=== PATIENT | male | born 1955 | race Caucasian/White ===

== ENCOUNTER 2019-02-10 16:16 | Inpatient (IN) | payer BC, OTHER ==
[2019-02-10 17:00] LABS: Absolute Lymphocytes (CBC) 0.7 K/uL (0.7-4.9); Basophils % 0.3 % (0-1.3); Eosinophils % 0.2 % (0-4.4); Hematocrit 48.1 % (39.6-49.0); Lymphocytes % 5.3 % (15.3-44.8); MPV 9.3 fL (7.6-11.3); RBC Red Blood Cell Count 5.84 M/uL (4.33-5.43)
[2019-02-10] MEDS ORDERED: NA CHLORIDE 0.9% 1,000 ML ONE ×2 (17:01→18:35)
[2019-02-10] MEDS ORDERED: ACETAMINOPHEN 500 MG TAB ONE (17:09)
[2019-02-10 17:15] LABS: Urine Bacteria <20 /HPF (NONE SEEN); Urine Culture Reflex Order NOT NEEDED; Urine RBC <5 /HPF (NONE SEEN)
[2019-02-10 17:16] LABS: Urine Amorphous Sediment 1+ /HPF (NONE SEEN)
[2019-02-10 17:22] LABS: ALT/SGPT 23 U/L (12-78); AST/SGOT 29 U/L (15-37); Albumin 4.2 g/dL (3.4-5.0); Alkaline Phosphatase 91 U/L (45-117); BUN Blood Urea Nitrogen 14 mg/dL (7-18); Bicarbonate 26 mmol/L (21-32); Bilirubin Direct 0.2 mg/dL (0-0.2); Bilirubin Total 0.7 mg/dL (0.2-1.0); Glucose Level 127 mg/dL (74-106); Lipase 160 U/L (73-393); Magnesium 2.1 mg/dL (1.8-2.4); NT PRO-BNP 51 pg/mL (<125); Potassium 3.8 mmol/L (3.5-5.1); Protein, Total 8.3 g/dL (6.4-8.2); Sodium Level 140 mmol/L (136-145); Troponin (Emerg Dept Use Only) < 0.02 ng/mL (0.0-0.045)
[2019-02-10 17:32] LABS: Protime INR 1.19
[2019-02-10 17:35] LABS: Blood Morphology Comment NOT SEEN (NOT SEEN); Platelet Estimate ADEQ; Urine White Blood Cell Casts OK
[2019-02-10] MEDS ORDERED: KETOROLAC 30 MG/ML INJ ONE (17:40)
[2019-02-10] MEDS ORDERED: ONDANSETRON 4 MG/2 ML VIAL ONE ×2 (18:17→18:55)
--- NOTE | 2019-02-10 18:48 | RAD REPORT ---
EXAM DESCRIPTION: RAD - Chest Single View - 02/10/2019 5:09 pm CLINICAL HISTORY: FEVER Chest pain. COMPARISON: CHEST PA AND LAT 2 VIEW dated 07/23/2008; CHEST PA AND LAT 2 VIEW dated 11/18/2000 FINDINGS: Portable technique limits examination quality. Linear subsegmental atelectasis is present both lung bases, greater on the left. Small left pleural e ffusion. Early infiltrate/pneumonia is possible in the left base. The heart is normal in size. No dis placed fractures.
--- NOTE | 2019-02-10 19:50 | RAD REPORT ---
EXAM DESCRIPTION: CTAbdomen Pelvis W Contrast - 02/10/2019 7:38 pm CLINICAL HISTORY: Abdominal pain. diarrhea;Fever COMPARISON: <Comparisons> TECHNIQUE: Biphasic CT imaging of the abdomen and pelvis was performed with 100 ml non-ionic IV cont rast. All CT scans are performed using dose optimization technique as appropriate and may include automated exposure control or mA/KV adjustment according to patient size. FINDINGS: The lung bases are clear.Small hiatal hernia. Fatty liver is present. No focal mass or intrahepatic biliary dilatation. Spleen is mildly enlarged. The pancreas, adrenal glands and kidneys within normal limits. Diffuse thickening of the colon is present several diverticula present. No bowel obstruction, free ai r or abscess. No significant ascites. The appendix is normal. Small fat containing bilateral inguinal hernias. No evidence of significant lymphadenopathy. No suspicious bony findings. IMPRESSION: Moderate pancolitis is noted. No pneumatosis coli.
[2019-02-10 19:59] LABS: Urine Blood TRACE (NEG); Urine Glucose NEGATIVE (NEG); Urine Protein 2+ (NEG); Urine Specific Gravity 1.025 (1.005-1.030); Urine pH 5.5 (5.0-7.0)
[2019-02-10] MEDS ORDERED: METRONIDAZOLE 500mg IVPB 500 MG/100 ML BAG IV ONE (20:23)
--- NOTE | 2019-02-10 20:50 | EDPHYS ---
Physician Documentation [facility] Name: Quentin Shoemaker Age: 63 yrs Sex: Male : 1955 Arrival Date: 02/10/2019 Time: 16:18 Bed 25 Private MD: ED Physician Yuriy Colon HPI: 02/10 16:41 This 63 yrs old Male presents to ER via Ambulatory with complaints of Nausea, cp Diarrhea, Fever. 16:41 The patient reports fever, with an emergency department temperature of 101.8 degrees cp Fahrenheit. Onset: The symptoms/episode began/occurred 2 day(s) ago. Associated signs and symptoms: Pertinent positives: diarrhea, Pertinent negatives: abdominal pain, altered mental status, chest pain, headache, skin rash. 16:41 Severity of symptoms: in the emergency department the symptoms are unchanged despite cp home interventions. Historical: - Allergies: 16:24 No Known Allergies; aa5 - Home Meds: 17:31 Vyvanse 50 mg oral cap 1 cap once daily [Active]; pantoprazole 40 mg oral TbEC 1 tab ca1 once daily [Active]; lisinopril-hydrochlorothiazide 10-12.5 mg oral tab .5 tab once daily [Active]; metformin 500 mg Oral Tb24 2 tabs 2 times per day [Active]; gabapentin 600 mg oral tab 1 tab twice a day [Active]; amitriptyline 10 mg Oral tab 2 tabs nightly [Active]; hydrocodone-acetaminophen 7.5-325 mg oral tab 1 tab twice a day [Active]; hydroxyurea 500 mg Oral cap 1 cap twice a week [Active]; tramadol 50 mg Oral tab 2 tabs three times a day [Active]; aspirin 81 mg Oral chew 1 tab once daily [Active]; Zyrtec Oral as needed [Active]; Multiple Vitamins oral tab [Active]; Vitamin D Oral [Active]; - PMHx: 16:24 Chronic back pain; Hypertension; Diabetes - NIDDM; aa5 22:26 Leukemia; ca1 - PSHx: 16:24 Tonsillectomy; aa5 - Immunization history:: Flu vaccine is up to date. - Social history:: Smoking status: Patient/guardian denies using tobacco. - Ebola Screening: : No symptoms or risks identified at this time. ROS: 16:45 Constitutional: Positive for fever, Negative for body aches, chills, poor PO intake. cp 16:45 Eyes: Negative for injury, pain, redness, and discharge. cp 16:45 Cardiovascular: Negative for chest pain, edema, palpitations. 16:45 Respiratory: Negative for cough, shortness of breath, wheezing. 16:45 Abdomen/GI: Positive for diarrhea, Negative for abdominal pain, vomiting, constipation, black/tarry stool, rectal bleeding. 16:45 Back: Negative for pain at rest, pain with movement. 16:45 Neuro: Negative for altered mental status, dizziness, headache, syncope, weakness. 16:45 All other systems are negative. Exam: 16:52 Constitutional: The patient appears in no acute distress, alert, awake, cp non-diaphoretic, non-toxic, well developed, well nourished. 16:52 Head/Face: Normocephalic, atraumatic. cp 16:52 Eyes: Periorbital structures: appear normal, Conjunctiva: normal, no exudate, no injection, Sclera: no appreciated abnormality, Lids and lashes: appear normal, bilaterally. 16:52 ENT: External ear(s): are unremarkable, Nose: is normal, Mouth: Lips: moist, Oral mucosa: pink and intact, moist, Posterior pharynx: is normal, airway is patent, no erythema, no exudate. 16:52 Neck: ROM/movement: is normal, is supple, without pain, no range of motions limitations, no nuchal rigidity. 16:52 Chest/axilla: Inspection: normal, Palpation: is normal, no crepitus, no tenderness. 16:52 Cardiovascular: Rate: tachycardic, Rhythm: regular, Edema: is not appreciated, JVD: is not appreciated. 16:52 Respiratory: the patient does not display signs of respiratory distress, Respirations: normal, no use of accessory muscles, no retractions, no splinting, no tachypnea, labored breathing, is not present, Breath sounds: are clear throughout, no decreased breath sounds, no stridor, no wheezing. 16:52 Abdomen/GI: Inspection: abdomen appears normal, Bowel sounds: active, all quadrants, Palpation: soft, in all quadrants, mild abdominal tenderness, in all quadrants, rebound tenderness, is not appreciated, voluntary guarding, is not appreciated, involuntary guarding, is not appreciated. 16:52 Back: pain, is absent, ROM is normal. 16:52 Skin: no rash present. cp 16:52 Neuro: Orientation: to person, place \T\ time. Mentation: is normal, Motor: moves all cp fours, strength is normal. 16:57 ECG was reviewed by the Attending Physician. cp 19:37 : Rectal exam: Guaiac testing: results were negative for occult blood. cp Vital Signs: 16:24 BP 158 / 96; Pulse 111; Resp 18 S; Temp 101.8(O); Pulse Ox 98% on R/A; Weight 95.25 kg aa5 (R); Height 6 ft. 0 in. (182.88 cm) (R); 17:07 BP 148 / 96; Pulse 111; Resp 15; Pulse Ox 96% on R/A; ca1 18:00 BP 119 / 79; Pulse 98; Resp 18; Pulse Ox 95% on R/A; rv 18:40 BP 137 / 95; Pulse 93; Resp 17 S; Temp 98.6(O); Pulse Ox 97% on R/A; ca1 18:46 Temp 98.7(O); ca1 20:18 BP 145 / 94; Pulse 95; Resp 17 S; Pulse Ox 96% on R/A; ca1 21:00 BP 139 / 92; Pulse 94; Resp 16 S; Temp 98.8(O); Pulse Ox 97% on R/A; ca1 21:37 BP 137 / 98; Pulse 83; Resp 17 S; Pulse Ox 97% on R/A; ca1 22:15 BP 134 / 95; Pulse 84; Resp 19 S; Temp 98.4(O); Pulse Ox 99% on R/A; ca1 16:24 Body Mass Index 28.48 (95.25 kg, 182.88 cm) aa5 MDM: 16:32 Patient medically screened. cp 17:00 Differential diagnosis: pneumonia meningitis, sepsis, gastroenteritis, colitis. cp 20:05 Data reviewed: vital signs, nurses notes, lab test result(s), EKG, radiologic studies, cp CT scan, plain films. 20:05 Test interpretation: by ED physician or midlevel provider: ECG, plain radiologic cp studies. Counseling: I had a detailed discussion with the patient and/or guardian regarding: the historical points, exam findings, and any diagnostic results supporting the discharge/admit diagnosis, lab results, radiology results, the need for further work-up and treatment in the hospital. 20:16 Physician consultation: Kevin Johnson MD was called at 20:17, unable to leave message cp on voicemail. 20:45 Physician consultation: Kevin Johnson MD was contacted at 20:45, regarding admission, cp to the medical/surgical unit. patient's condition. 02/10 16:37 Order name: Influenza Screen (a \T\ B) cp 02/10 16:37 Order name: Basic Metabolic Panel 02/10 16:37 Order name: CBC with Diff 02/10 16:37 Order name: LFT's cp 02/10 16:37 Order name: Magnesium cp 02/10 16:37 Order name: NT PRO-BNP 02/10 16:37 Order name: PT-INR 02/10 16:37 Order name: Troponin (emerg Dept Use Only) 02/10 16:37 Order name: Blood Culture Adult (2) 02/10 16:37 Order name: Lactate cp 02/10 16:37 Order name: Procalcitonin; Complete Time: 17:39 cp 02/10 17:44 Interpretation: Reviewed. 02/10 16:37 Order name: Urine Microscopic Only; Complete Time: 17:23 cp 02/10 18:25 Interpretation: Reviewed. 02/10 16:37 Order name: Lipase; Complete Time: 17:39 cp 02/10 16:38 Order name: Influenza Screen (A ; Complete Time: 17:39 EDMS 02/10 16:37 Order name: XRAY Chest (1 view); Complete Time: 19:27 cp 02/10 16:38 Order name: Basic Metabolic Panel; Complete Time: 17:23 EDMS 02/10 17:23 Interpretation: Normal except: GLUC 127; GFR 59. cp 02/10 16:38 Order name: CBC with Automated Diff; Complete Time: 17:39 EDMS 02/10 17:23 Interpretation: Normal except: WBC 13.5; RBC 5.84; MCH 25.0; MCHC 30.4; RDW 17.7; AD% cp 87.2; LYM% 5.3; NEUT A 11.8. 02/10 16:38 Order name: Liver (Hepatic) Function; Complete Time: 17:24 EDMS 02/10 17:24 Interpretation: Normal except: TP 8.3; GLOB 4.1; A/G 1.0. cp 02/10 16:38 Order name: Magnesium; Complete Time: 17:39 EDMS 02/10 16:38 Order name: NT PRO-BNP; Complete Time: 17:39 EDMS 02/10 16:38 Order name: Protime (+INR); Complete Time: 17:39 EDMS 02/10 17:41 Interpretation: Abnormal: PT 14.0. cp 02/10 16:38 Order name: Troponin (Emerg Dept Use Only); Complete Time: 17:39 EDMS 02/10 16:38 Order name: Blood Culture EDID 02/10 16:39 Order name: Lactate; Complete Time: 17:39 EDMS 02/10 17:45 Interpretation: LAC 1.6; Reviewed. cp 02/10 17:07 Order name: CBC Smear Scan; Complete Time: 17:39 EDMS 02/10 17:18 Order name: CT Abd/Pelvis - PO and IV Contrast; Complete Time: 20:02 cp 02/10 19:33 Order name: Stool Culture 02/10 19:33 Order name: CDIFF 02/10 19:51 Order name: Urine Dipstick--Ancillary (enter results); Complete Time: 20:02 02/10 20:02 Interpretation: Normal except: UKET 1+; UBLD TRACE; UPROT 2+. cp 02/10 21:49 Order name: Fecal Leukocyte Stain EDID 02/10 16:37 Order name: EKG; Complete Time: 16:39 cp 02/10 16:37 Order name: Cardiac monitoring; Complete Time: 16:49 cp 02/10 16:37 Order name: EKG - Nurse/Tech; Complete Time: 16:53 cp 02/10 16:37 Order name: IV Saline Lock; Complete Time: 16:49 cp 02/10 16:37 Order name: Labs collected and sent; Complete Time: 16:48 cp 02/10 16:37 Order name: O2 Per Protocol; Complete Time: 16:48 cp 02/10 16:37 Order name: O2 Sat Monitoring; Complete Time: 16:49 cp 02/10 16:37 Order name: Urine Dipstick-Ancillary (obtain specimen); Complete Time: 16:53 cp 02/10 21:47 Order name: ACACIA EDMS EC:57 Rate is 114 beats/min. Rhythm is regular. AR interval is normal. QRS interval is cp normal. QT interval is normal. Interpreted by me. Reviewed by me. Administered Medications: 16:48 Drug: NS 0.9% 1000 ml Route: IV; Rate: 1 bolus; Site: left antecubital; ca1 17:50 Follow up: Response: No adverse reaction; IV Status: Completed infusion ca1 16:51 Drug: Tylenol 1000 mg Route: PO; ca1 18:46 Follow up: Temp 98.7 Oral; Response: No adverse reaction ca1 17:31 Drug: TORadol 30 mg Route: IVP; Site: left antecubital; rv 18:46 Follow up: Response: No adverse reaction; Pain is decreased ca1 17:49 Drug: Zofran 4 mg Route: IVP; Site: left antecubital; ca1 18:46 Follow up: Response: No adverse reaction; Nausea is decreased ca1 18:24 Drug: NS 0.9% 1000 ml Route: IV; Rate: 1 bolus; Site: left antecubital; rv 19:20 Follow up: Response: No adverse reaction; IV Status: Completed infusion ca1 20:15 Drug: metroNIDAZOLE 500 mg Volume: 100 ml; Route: IVPB; Infused Over: 30 mins; Site: ca1 left antecubital; 21:19 Follow up: Response: No adverse reaction; IV Status: Completed infusion ca1 21:18 Drug: Cipro 400 mg Volume: 200 ml; Route: IVPB; Infused Over: 60 mins; Site: left ca1 antecubital; 22:17 Follow up: Response: No adverse reaction; IV Status: Completed infusion ca1 22:29 Drug: fentaNYL (PF) 25 mcg Route: IVP; Site: left antecubital; ca1 22:36 Follow up: Response: No adverse reaction; Pain is decreased ca1 Disposition: 02/10/19 20:49 Hospitalization ordered by Kevin Johnson for Inpatient Admission. Preliminary diagnosis is Infectious gastroenteritis and colitis, unspecified. - Bed requested for Telemetry/MedSurg (Inpatient). - Status is Inpatient Admission. ca1 - Condition is Stable. - Problem is new. - Symptoms have improved. UTI on Admission? No Addendum: 02/16/2019 00:52 Co-signature as Attending Physician, Yuriy Colon MD. r n Signatures: Dispatcher [employer] EDMS Yuiry Colon MD MD rn Calderon, Audri RN RN aa5 Filiberto Morrison PA PA cp Lyn Sinclair, YULIYA RN cg Lázaro Rowan, RN RN AcMary diaz RN RN ca1 Corrections: (The following items were deleted from the chart) 02/10 22:07 20:49 Hospitalization Ordered by Kevin Johnson MD for Inpatient Admission. Preliminary cg diagnosis is Infectious gastroenteritis and colitis, unspecified. Bed requested for Telemetry/MedSurg (Inpatient). Status is Inpatient Admission. Condition is Stable. Problem is new. Symptoms have improved. UTI on Admission? No. cp 22:37 22:07 02/10/2019 20:49 Hospitalization Ordered by Kevin Johnson MD for Inpatient ca1 Admission. Preliminary diagnosis is Infectious gastroenteritis and colitis, unspecified. Bed requested for Telemetry/MedSurg (Inpatient). Status is Inpatient Admission. Condition is Stable. Problem is new. Symptoms have improved. UTI on Admission? No. cg
--- NOTE | 2019-02-10 20:50 | ER ---
Nurse's Notes [facility] [place], [place] Name: Quentin Shoemaker Age: 63 yrs Sex: Male : 1955 Arrival Date: 02/10/2019 Time: 16:18 Bed 25 Private MD: Diagnosis: Infectious gastroenteritis and colitis, unspecified Presentation: 02/10 16:21 Presenting complaint: Patient states: nausea, diarrhea, and fever up to 102.6 F that aa5 began 2 days ago. Pt's also reports confusion today. Pt denies abd pain. Transition of care: patient was not received from another setting of care. Onset of symptoms was February 2019. Risk Assessment: Do you want to hurt yourself or someone else? Patient reports no desire to harm self or others. Care prior to arrival: None. 16:21 Method Of Arrival: Ambulatory aa5 16:21 Acuity: HALINA 2 aa5 16:25 Initial Sepsis Screen: Does the patient meet any 2 criteria? Temp <36.0*C (96.8*F)) or aa5 > 38.3*C (100.9*F). HR > 90 bpm. Yes Does the patient have a suspected source of infection? Yes: Other: diarrhea. Historical: - Allergies: 16:24 No Known Allergies; aa5 - Home Meds: 17:31 Vyvanse 50 mg oral cap 1 cap once daily [Active]; pantoprazole 40 mg oral TbEC 1 tab ca1 once daily [Active]; lisinopril-hydrochlorothiazide 10-12.5 mg oral tab .5 tab once daily [Active]; metformin 500 mg Oral Tb24 2 tabs 2 times per day [Active]; gabapentin 600 mg oral tab 1 tab twice a day [Active]; amitriptyline 10 mg Oral tab 2 tabs nightly [Active]; hydrocodone-acetaminophen 7.5-325 mg oral tab 1 tab twice a day [Active]; hydroxyurea 500 mg Oral cap 1 cap twice a week [Active]; tramadol 50 mg Oral tab 2 tabs three times a day [Active]; aspirin 81 mg Oral chew 1 tab once daily [Active]; Zyrtec Oral as needed [Active]; Multiple Vitamins oral tab [Active]; Vitamin D Oral [Active]; - PMHx: 16:24 Chronic back pain; Hypertension; Diabetes - NIDDM; aa5 22:26 Leukemia; ca1 - PSHx: 16:24 Tonsillectomy; aa5 - Immunization history:: Flu vaccine is up to date. - Social history:: Smoking status: Patient/guardian denies using tobacco. - Ebola Screening: : No symptoms or risks identified at this time. Screenin:49 Abuse screen: Denies threats or abuse. Denies injuries from another. Nutritional ca1 screening: No deficits noted. Tuberculosis screening: No symptoms or risk factors identified. Fall Risk IV access (20 points). Assessment: 16:49 General: Appears in no apparent distress. comfortable, Behavior is calm, cooperative, ca1 appropriate for age. General: Behavior is Reports fever for 1-2 days. Pain: Complains of pain in abdomen Pain does not radiate. Pain currently is 6 out of 10 on a pain scale. Quality of pain is described as crampy, Pain began 1 day ago. Is intermittent. Neuro: Level of Consciousness is awake, alert, obeys commands, Oriented to person, place, time, situation. Cardiovascular: Reports lightheadedness, Heart tones S1 S2 present Capillary refill < 3 seconds Patient's skin is warm and dry. Pulses are all present. Respiratory: Airway is patent Respiratory effort is even, unlabored, Respiratory pattern is regular, symmetrical, Breath sounds are clear bilaterally. GI: Abdomen is flat, non-distended, Bowel sounds present X 4 quads. Abd is soft and non tender X 4 quads. Reports diarrhea, nausea, since yesterday. : No deficits noted. No signs and/or symptoms were reported regarding the genitourinary system. EENT: No deficits noted. No signs and/or symptoms were reported regarding the EENT system. Derm: Skin is intact, is healthy with good turgor, Skin is pink, warm \T\ dry. Musculoskeletal: Circulation, motion, and sensation intact. Capillary refill < 3 seconds, Range of motion: intact in all extremities. 17:32 Reassessment: Patient appears in no apparent distress at this time. Patient and/or ca1 family updated on plan of care and expected duration. Pain level reassessed. Patient is alert, oriented x 3, equal unlabored respirations, skin warm/dry/pink. Pt C/O of neuropathic pain on both legs. Notified provider. Med ordered and given. 18:30 Reassessment: pt had BMx4, loose. Notified provider. ca1 18:40 Reassessment: Patient appears in no apparent distress at this time. Patient and/or ca1 family updated on plan of care and expected duration. Pain level reassessed. Patient is alert, oriented x 3, equal unlabored respirations, skin warm/dry/pink. Pending CT scan with Oral Contrast. 19:15 Reassessment: Patient appears in no apparent distress at this time. Patient and/or ca1 family updated on plan of care and expected duration. Pain level reassessed. Patient is alert, oriented x 3, equal unlabored respirations, skin warm/dry/pink. 20:16 Reassessment: Patient appears in no apparent distress at this time. Patient and/or ca1 family updated on plan of care and expected duration. Pain level reassessed. Patient is alert, oriented x 3, equal unlabored respirations, skin warm/dry/pink. 21:00 Reassessment: Patient appears in no apparent distress at this time. Patient and/or ca1 family updated on plan of care and expected duration. Pain level reassessed. Patient is alert, oriented x 3, equal unlabored respirations, skin warm/dry/pink. 22:15 Reassessment: Patient appears in no apparent distress at this time. Patient is alert, ca1 oriented x 3, equal unlabored respirations, skin warm/dry/pink. Instructed on NPO. Vital Signs: 16:24 BP 158 / 96; Pulse 111; Resp 18 S; Temp 101.8(O); Pulse Ox 98% on R/A; Weight 95.25 kg aa5 (R); Height 6 ft. 0 in. (182.88 cm) (R); 17:07 BP 148 / 96; Pulse 111; Resp 15; Pulse Ox 96% on R/A; ca1 18:00 BP 119 / 79; Pulse 98; Resp 18; Pulse Ox 95% on R/A; rv 18:40 BP 137 / 95; Pulse 93; Resp 17 S; Temp 98.6(O); Pulse Ox 97% on R/A; ca1 18:46 Temp 98.7(O); ca1 20:18 BP 145 / 94; Pulse 95; Resp 17 S; Pulse Ox 96% on R/A; ca1 21:00 BP 139 / 92; Pulse 94; Resp 16 S; Temp 98.8(O); Pulse Ox 97% on R/A; ca1 21:37 BP 137 / 98; Pulse 83; Resp 17 S; Pulse Ox 97% on R/A; ca1 22:15 BP 134 / 95; Pulse 84; Resp 19 S; Temp 98.4(O); Pulse Ox 99% on R/A; ca1 16:24 Body Mass Index 28.48 (95.25 kg, 182.88 cm) aa5 ED Course: 16:18 Patient arrived in ED. as 16:21 Arm band placed on. aa5 16:23 Triage completed. aa5 16:24 Filiberto Morrison PA is PHCP. cp 16:24 Yuriy Colon MD is Attending Physician. cp 16:26 Mary Walton, YULIYA is Primary Nurse. ca1 16:49 Patient has correct armband on for positive identification. Placed in gown. Bed in low ca1 position. Call light in reach. Side rails up X 1. nuclear monitoring technician on. Pulse ox on. NIBP on. 16:49 No provider procedures requiring assistance completed. Inserted saline lock: 20 gauge ca1 in left antecubital area, using aseptic technique. Blood collected. 16:49 First set of blood cultures drawn by me. ca1 17:07 XRAY Chest (1 view) In Process Unspecified. EDMS 17:13 EKG done, by process engineering technician. reviewed by Filiberto CHANDLER. dt2 17:18 Second set of blood cultures drawn by me. rv 17:23 Oral contrast given. vm2 19:38 CT Abd/Pelvis - PO and IV Contrast In Process Unspecified. EDMS 19:39 CT completed. Patient tolerated procedure well. Patient moved to CT. Patient moved back vm2 from CT. 20:48 Kevin Johnson MD is Hospitalizing Provider. cp 22:34 Patient admitted, IV remains in place. ca1 Administered Medications: 16:48 Drug: NS 0.9% 1000 ml Route: IV; Rate: 1 bolus; Site: left antecubital; ca1 17:50 Follow up: Response: No adverse reaction; IV Status: Completed infusion ca1 16:51 Drug: Tylenol 1000 mg Route: PO; ca1 18:46 Follow up: Temp 98.7 Oral; Response: No adverse reaction ca1 17:31 Drug: TORadol 30 mg Route: IVP; Site: left antecubital; rv 18:46 Follow up: Response: No adverse reaction; Pain is decreased ca1 17:49 Drug: Zofran 4 mg Route: IVP; Site: left antecubital; ca1 18:46 Follow up: Response: No adverse reaction; Nausea is decreased ca1 18:24 Drug: NS 0.9% 1000 ml Route: IV; Rate: 1 bolus; Site: left antecubital; rv 19:20 Follow up: Response: No adverse reaction; IV Status: Completed infusion ca1 20:15 Drug: metroNIDAZOLE 500 mg Volume: 100 ml; Route: IVPB; Infused Over: 30 mins; Site: ca1 left antecubital; 21:19 Follow up: Response: No adverse reaction; IV Status: Completed infusion ca1 21:18 Drug: Cipro 400 mg Volume: 200 ml; Route: IVPB; Infused Over: 60 mins; Site: left ca1 antecubital; 22:17 Follow up: Response: No adverse reaction; IV Status: Completed infusion ca1 22:29 Drug: fentaNYL (PF) 25 mcg Route: IVP; Site: left antecubital; ca1 22:36 Follow up: Response: No adverse reaction; Pain is decreased ca1 Outcome: 20:49 Decision to Hospitalize by Provider. cp 22:34 Admitted to Tele accompanied by tech, family with patient, via wheelchair, room 429, ca1 with chart, Report called to Tamera Hernandez RN 22:34 Condition: stable 22:34 Instructed on the need for admit. 22:37 Patient left the ED. ca1 Signatures: Dispatcher [employer] Gini Ricketts Audri, RN RN aa5 Filiberto Morrison PA PA Ricarda Armenta Sandra Faye 2 Lázaro Rowan RN RN rv Acob, Cheryl, RN RN ca1 Corrections: (The following items were deleted from the chart) 17:07 16:49 Warm blanket given. ca1 ca1 17:24 16:49 Inserted saline lock: 20 gauge in left antecubital area, using aseptic technique. ca1 Blood collected. ca1 21:20 21:00 BP 139 / 92; Pulse 94bpm; Resp 16bpm; Spontaneous; Pulse Ox 97% RA; ca1 ca1
[2019-02-10] MEDS ORDERED: CIPROFLOXACIN 400mg IV 400 MG/200 ML BAG IV ONE (21:01)
[2019-02-10] MEDS ORDERED: MAGNESIUM HYDROXIDE 8% 30 ML PO PRN (21:36)
[2019-02-10] MEDS ORDERED: ACETAMINOPHEN 500 MG TAB PO PRN (21:36)
[2019-02-10] MEDS ORDERED: ONDANSETRON 4 MG/2 ML VIAL IV PRN (21:36)
[2019-02-10] MEDS ORDERED: ALPRAZOLAM 0.25 MG TABLET PO PRN (21:36)
[2019-02-10] MEDS ORDERED: FENTANYL CITR 100 MCG/2 ML ONE (22:41)
[2019-02-10] MEDS: METRONIDAZOLE 500mg IVPB 500 MG/100 ML BAG IV SCH (23:26)
[2019-02-10] MEDS: NA CHLORIDE 0.9% 1,000 ML IV SCH (23:26)
[2019-02-10] MEDS: Levofloxacin500mg IV 500 MG/100 ML BAG IV SCH (23:27)
[2019-02-11] MEDS: MORPHINE 4 MG/ML SYR IV PRN ×2 (04:55→14:13)
[2019-02-11] MEDS: METRONIDAZOLE 500mg IVPB 500 MG/100 ML BAG IV SCH ×4 (05:07→23:15)
[2019-02-11 06:37] LABS: Absolute Lymphocytes (CBC) 0.6 K/uL (0.7-4.9); Basophils % 0.3 % (0-1.3); Eosinophils % 0.6 % (0-4.4); Hematocrit 39.6 % (39.6-49.0); Lymphocytes % 6.7 % (15.3-44.8); MPV 9.2 fL (7.6-11.3); RBC Red Blood Cell Count 4.82 M/uL (4.33-5.43)
[2019-02-11 06:44] LABS: Albumin 3.5 g/dL (3.4-5.0); Bilirubin Total 0.5 mg/dL (0.2-1.0); Magnesium 2.1 mg/dL (1.8-2.4); Phosphorus 2.4 mg/dL (2.5-4.9); Potassium 3.8 mmol/L (3.5-5.1); Protein, Total 6.7 g/dL (6.4-8.2)
--- NOTE | 2019-02-11 07:03 | EKG ---
Test Date: 2019-02-10 Test Time: 16:54:40 Reporting Consultant: JOBY MEASUREMENT RESULTS: Intervals: Rate: 114 KS: 142 QRSD: 88 QT: 306 QTc: 421 [place]: P: 48 KS: 142 QRS: -30 T: 54 INTERPRETIVE STATEMENTS: Sinus tachycardia Possible Left atrial enlargement Left axis deviation Pulmonary disease pattern Abnormal ECG No previous ECG available for comparison Electronically Signed On 02-11-19 07:02:16 CDT by Denzel Hudson
[2019-02-11] MEDS: LISDEXAMFETAMINE DIMESYLATE 50 MG PO SCH (09:00)
[2019-02-11] MEDS ORDERED: POTASSIUM CL SA 10 MEQ TAB PO ONE (09:00)
[2019-02-11] MEDS ORDERED: GABAPENTIN 300 MG CAP PO SCH (09:00)
[2019-02-11] MEDS: NA CHLORIDE 0.9% 1,000 ML IV SCH ×2 (09:05→20:11)
[2019-02-11] MEDS: ENOXAPARIN 40 MG/0.4 ML SQ SCH (09:09)
[2019-02-11] MEDS: HYDROXYUREA 500 MG CAP PO SCH (09:10)
[2019-02-11] MEDS: PANTOPRAZOLE 40MG TABLET PO SCH (09:10)
[2019-02-11] MEDS: MULTIVITAMIN TAB PO SCH (09:10)
[2019-02-11] MEDS: HYDROCODONE/APAP 7.5/325 MG TAB PO SCH ×2 (09:11→20:12)
[2019-02-11] MEDS: ASPIRIN 81 MG CHEWABLE TABLET PO SCH (09:12)
[2019-02-11] MEDS: POTASS/SODIUM PHOSPHATE 1 PKT POWD.PACK PO SCH ×5 (09:12→12:00)
[2019-02-11] MEDS: GABAPENTIN 300 MG CAP PO SCH ×3 (09:12→20:11)
--- NOTE | 2019-02-11 12:07 | P.PN ---
Subjective Date of Service: 02/11/19 Patient seen and examined at bedside. No family at bedside. Chart reviewed and case discussed with nursing staff. Patient presents the ER with fever of 101.8 along with diarrhea and decreased appetite. CT scan was done in the ER, he was found to have lord colitis. ? Infectious gastroenteritis Patient seen this morning at bedside, reports to watery bowel movements so far this morning. Denies any abdominal pain, chest pain, shortness of breath, lower extremity swelling, headache, vision changes, dizziness or other complaints at this time. Has remained afebrile since initial temperature of 101. He remains hemodynamically stable. No other concerns or complaints this morning Review of Systems 10-point ROS is otherwise unremarkable Physical Examination - Vital Signs Temperature: 98.0 F Blood Pressure: 145/81 Pulse: 74 Respirations: 18 Pulse Ox (%): 74 - Physical Exam General: Alert, In no apparent distress, Oriented x3 HEENT: Atraumatic, PERRLA, EOMI Neck: Supple, JVD not distended Respiratory: Clear to auscultation bilaterally, Normal air movement Cardiovascular: Regular rate/rhythm, Normal S1 S2 Gastrointestinal: Normal bowel sounds, No tenderness Musculoskeletal: No tenderness Integumentary: No rashes Neurological: Normal speech, Normal tone, Normal affect Lymphatics: No axilla or inguinal lymphadenopathy - Studies Laboratory Data (last 24 hrs) 02/10/19 16:42: PT 14.0 H, INR 1.19 02/10/19 16:42: WBC 13.5 H, Hgb 14.6, Hct 48.1, Plt Count 233 02/10/19 16:42: Sodium 140, Potassium 3.8, BUN 14, Creatinine 1.24, Glucose 127 H, Magnesium 2.1, Total Bilirubin 0.7, AST 29, ALT 23, Alkaline Phosphatase 91, Lipase 160 Microbiology Data (last 24 hrs): 02/10/19 16:40 Nasopharnyx Influenza Type A Antigen Screen - Final 02/10/19 16:40 Nasopharnyx Influenza Type B Antigen Screen - Final Assessment And Plan - Current Problems (Diagnosis) (1) Pancolitis Current Visit: Yes Status: Acute Plan: Noted on CT scan. - keep NPO, continue IV fluids - continue IV antibiotics this time - 1 symptoms improved, can start with clear liquid diet, advance slowly. (2) Infectious gastroenteritis Current Visit: Yes Status: Suspected Plan: Suspecting infectious gastroenteritis. Stool studies, C. diff pending. Will follow - in the meanwhile continue IV antibiotics (3) Leukocytosis Current Visit: Yes Status: Resolved Qualifiers: Leukocytosis type: unspecified Qualified Code(s): D72.829 - Elevated white blood cell count, unspecified (4) Chronic back pain Current Visit: No Status: Chronic Qualifiers: Back pain location: back pain in unspecified location Back pain laterality : unspecified Qualified Code(s): M54.9 - Dorsalgia, unspecified; G89.29 - Other chronic pain (5) Hypertension Current Visit: No Status: Chronic Plan: Stable, continue home medications. 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 Can advance diet slowly as symptoms improve.
[2019-02-11] MEDS ORDERED: AMITRIPTYLINE 10 MG TAB PO SCH (21:00)
[2019-02-11] MEDS: Levofloxacin500mg IV 500 MG/100 ML BAG IV SCH (21:03)
[2019-02-12] MEDS: NA CHLORIDE 0.9% 1,000 ML IV SCH ×2 (00:45→09:03)
[2019-02-12] MEDS: MORPHINE 4 MG/ML SYR IV PRN (04:25)
[2019-02-12] MEDS: METRONIDAZOLE 500mg IVPB 500 MG/100 ML BAG IV SCH ×2 (05:23→11:07)
[2019-02-12 06:28] LABS: Phosphorus 1.9 mg/dL (2.5-4.9); Potassium 3.3 mmol/L (3.5-5.1)
[2019-02-12] MEDS ORDERED: POTASSIUM CL SA 10 MEQ TAB PO ONE (09:00)
[2019-02-12] MEDS: LISDEXAMFETAMINE DIMESYLATE 50 MG PO SCH (09:00)
[2019-02-12] MEDS: POTASS/SODIUM PHOSPHATE 1 PKT POWD.PACK PO SCH ×3 (09:03→11:06)
[2019-02-12] MEDS: ENOXAPARIN 40 MG/0.4 ML SQ SCH (09:06)
[2019-02-12] MEDS: PANTOPRAZOLE 40MG TABLET PO SCH (09:07)
[2019-02-12] MEDS: HYDROCODONE/APAP 7.5/325 MG TAB PO SCH (09:07)
[2019-02-12] MEDS: GABAPENTIN 300 MG CAP PO SCH (09:08)
[2019-02-12] MEDS: ASPIRIN 81 MG CHEWABLE TABLET PO SCH (09:08)
[2019-02-12] MEDS: HYDROXYUREA 500 MG CAP PO SCH (09:09)
[2019-02-12] MEDS: MULTIVITAMIN TAB PO SCH (09:09)
--- NOTE | 2019-02-12 09:16 | P.HP ---
Certification for Inpatient Patient admitted to: Inpatient With expected LOS: >2 Midnights Patient will require the following post-hospital care: None Practitioner: I am a practitioner with admitting privileges, knowledge of patient current condition, hospital course, and medical plan of care. Services: Services provided to patient in accordance with Admission requirements found in Title 42 Section 412.3 of the Code of Federal Regulations Patient History Date of Service: 02/10/19 Reason for admission: Acute colitis History of Present Illness: Patient is a 63-year-old gentleman who came the hospital with abdominal pain. Patient was having diarrhea. Patient has some nausea as well. Patient was seen in the emergency room and CT scan revealed lord colitis. Patient denies taking any antibiotics recently. Stool studies are pending. Patient will be admitted to the hospital for further evaluation. Allergies No Known Allergies Allergy (Unverified 02/10/19 22:14) Home Medications: Amitriptyline [Elavil] 2 tab PO BEDTIME 02/10/19 Aspirin 81 mg PO DAILY 02/10/19 Cetirizine HCl [Zyrtec] 10 mg PO DAILY 02/10/19 Cholecalciferol (Vitamin D3) [Vitamin D 1000 Iu Tab] 1,000 unit PO DAILY Gabapentin [Gralise] 600 mg PO TID 02/10/19 Hydrocodone 7.5/APAP 325 [[place] 7.5/325 mg] 1 tab PO BID 02/10/19 Hydroxyurea 500 mg PO DAILY 02/10/19 Lisdexamfetamine Dimesylate [Vyvanse] 50 mg PO DAILY 02/10/19 Lisinopril/Hydrochlorothiazide [Lisinopril-Hctz 10-12.5 mg Tab] 12.5 mg PO DAILY 02/10/19 Metformin ER [Glucophage ER] 500 mg PO BID 02/10/19 Multivitamin [Multivitamins] 1 each PO DAILY 02/10/19 Pantoprazole [Protonix Tab] 40 mg PO DAILY 02/10/19 Tramadol HCl [Ultram] 50 mg PO TID PRN 02/10/19 - Past Medical/Surgical History Has patient received pneumonia vaccine in the past: No Diabetic: Yes -: Chronic back pain -: HTN -: NIDDM -: Leukemia 2010 -: Tonsillectomy - Family History Father Medical History: Heart disease, Diabetes - Social History Smoking Status: Former smoker Alcohol use: No CD- Drugs: No Caffeine use: Yes Place of Residence: Home Review of Systems 10-point ROS is otherwise unremarkable Physical Examination - Vital Signs Temperature: 97.9 F Blood Pressure: 158/85 Pulse: 70 Respirations: 18 Pulse Ox (%): 97 - Physical Exam General: Alert, In no apparent distress, Oriented x3 HEENT: Atraumatic, PERRLA, Mucous membr. moist/pink, EOMI, Sclerae nonicteric Neck: Supple, 2+ carotid pulse no bruit, No LAD, Without JVD or thyroid abnormality Respiratory: Clear to auscultation bilaterally, Normal air movement Cardiovascular: Regular rate/rhythm, Normal S1 S2, No murmurs Gastrointestinal: Normal bowel sounds, Soft and benign, Non-distended, No rebound, No guarding, Tenderness Musculoskeletal: No clubbing, No swelling, No tenderness Integumentary: No rashes Neurological: Normal gait, Normal speech, Normal strength at 5/5 x4 extr, Normal tone, Sensation intact, Cranial nerves 3-12 intact, Normal affect Lymphatics: No axilla or inguinal lymphadenopathy - Studies Microbiology Data (last 24 hrs): 02/10/19 19:37 Stool Clostridium difficile Toxin Assay - Final 02/10/19 21:45 Stool Fecal Leukocyte Stain - Final Assessment & Plan - Problems (Diagnosis) (1) Pancolitis Current Visit: Yes Status: Acute (2) Leukocytosis Current Visit: Yes Status: Resolved Qualifiers: Leukocytosis type: unspecified Qualified Code(s): D72.829 - Elevated white blood cell count, unspecified (3) Chronic back pain Current Visit: No Status: Chronic Qualifiers: Back pain location: back pain in unspecified location Back pain laterality : unspecified Qualified Code(s): M54.9 - Dorsalgia, unspecified; G89.29 - Other chronic pain (4) Diabetes mellitus Current Visit: No Status: Chronic Qualifiers: Diabetes mellitus type: type 2 Diabetes mellitus half-way insulin use: without bed bug exterminator use Diabetes mellitus complication status: without complication Qualified Code(s): E11.9 - Type 2 diabetes mellitus without complications (5) Hypertension Current Visit: No Status: Chronic Qualifiers: Hypertension type: essential hypertension Qualified Code(s): I10 - Essential (primary) hypertension (6) Leukemia Current Visit: No Status: Chronic Qualifiers: Leukemia type: unspecified Leukemia Active/Remission status: in remission Qualified Code(s): 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 Continue with IV hydration 2. Continue with IV antibiotics 3. Continue with pain control 4. NPO 5. General surgery consultation; outpatient colonoscopy in 6-12 weeks 6. Serial H&H, and we will monitor CBC, BMP, LFTs and lipase along with electrolytes. 7. GI and DVT prophylaxis Discharge Plan: Home Plan to discharge in: Greater than 2 days - Advance Directives Does patient have a Living Will: No Does patient have a Durable POA for Healthcare: No - Code Status/Comfort Care Code Status Assessed: Yes Code Status: Full Code Critical Care: No Time Spent Managing PTS Care (In Minutes): 45
--- NOTE | 2019-02-12 09:42 | P.DS ---
Admission Date: 02/10/19 (Hospitalist) Discharge Date: 02/12/19 Disposition: ROUTINE DISCHARGE Discharge Condition: GOOD Reason for Admission: Acute colitis - Problems (1) Pancolitis Current Visit: Yes Status: Acute Brief History of Present Illness: Patient is 63 years of age admitted with nausea vomiting diarrhea Hospital Course: Diagnosis was that of lord colitis presumed viral the time of discharge he was alert oriented responsive vital signs all stable ABS mild hypokalemia CBC normal C. difficile negative Physical examination vital signs normal alert oriented responsive cooperative chest clear cardiovascular system os sounds normal abdomen soft. No rebound guarding or tenderness patient will be discharged home on low-dose potassium to follow up with his primary care physician no restrictions resume all her home medications Vital Signs/Physical Exam: Temp Pulse Resp BP Pulse Ox 97.9 F 70 18 158/85 H 97 02/12/19 09:16 02/12/19 09:16 02/12/19 09:16 02/12/19 09:16 02/12/19 09:16 Laboratory Data at Discharge: WBC 8.9 K/uL (4.3-10.9) D 02/11/19 06:08 Hgb 12.5 g/dL (13.6-17.9) L 02/11/19 06:08 Hct 39.6 % (39.6-49.0) D 02/11/19 06:08 Plt Count 192 K/uL (152-406) 02/11/19 06:08 PT 14.0 SECONDS (9.5-12.5) H 02/10/19 16:42 INR 1.19 02/10/19 16:42 Sodium 142 mmol/L (136-145) 02/12/19 05:28 Potassium 3.3 mmol/L (3.5-5.1) L 02/12/19 05:28 BUN 7 mg/dL (7-18) 02/12/19 05:28 Creatinine 0.93 mg/dL (0.55-1.3) 02/12/19 05:28 Glucose 98 mg/dL (74-106) 02/12/19 05:28 Phosphorus 1.9 mg/dL (2.5-4.9) L 02/12/19 05:28 Magnesium 2.1 mg/dL (1.8-2.4) 02/11/19 06:08 Total Bilirubin 0.5 mg/dL (0.2-1.0) 02/11/19 06:08 AST 27 U/L (15-37) 02/11/19 06:08 ALT 22 U/L (12-78) 02/11/19 06:08 Alkaline Phosphatase 69 U/L (45-117) 02/11/19 06:08 Lipase 160 U/L (73-393) 02/10/19 16:42 Home Medications: Amitriptyline [Elavil*] 2 tab PO BEDTIME 02/10/19 Aspirin 81 mg PO DAILY 02/10/19 Cetirizine HCl [Zyrtec] 10 mg PO DAILY 02/10/19 Cholecalciferol (Vitamin D3) [Vitamin D 1000 Iu Tab*] 1,000 unit PO DAILY Gabapentin [Gralise] 600 mg PO TID 02/10/19 Hydrocodone 7.5/APAP 325 [[place] 7.5/325 mg*] 1 tab PO BID 02/10/19 Hydroxyurea 500 mg PO DAILY 02/10/19 Lisdexamfetamine Dimesylate [Vyvanse] 50 mg PO DAILY 02/10/19 Lisinopril/Hydrochlorothiazide [Lisinopril-Hctz 10-12.5 mg Tab] 12.5 mg PO DAILY 02/10/19 Metformin ER [Glucophage ER*] 500 mg PO BID 02/10/19 Multivitamin [Multivitamins] 1 each PO DAILY 02/10/19 Pantoprazole [Protonix Tab*] 40 mg PO DAILY 02/10/19 Tramadol HCl [Ultram] 50 mg PO TID PRN 02/10/19 Potassium Chloride 20 meq PO DAILY #10 tablet.er 02/12/19 New Medications: Potassium Chloride 20 meq PO DAILY #10 tablet.er Patient Discharge Instructions: El to follow up with primary care resume all home medications potassium chloride prescription faxed Diet: Regular Activity: Ad aleks
--- NOTE | 2019-02-15 11:55 | P.PN ---
Date of Service: 02/15/[address] Camacho who discharged this patient on 02/12/19. Micro lab called him and reported Salmonella. As I am now on the hospitalist service he asked me to call in abx for the pt. Levaquin was ordered. Charge nurse Shabbir notified to call patient and inform him of the lab results and for pt to pick pulling machine operator abx. f/up w PCP as scheduled. Return to ER for worsening condition
== END 2019-02-12 14:03 | disposition home or self-care (01) | DRG 386 ==
LOC: ER 16:16 → ERHOLD 22:03 → 4TH 22:29
PROVIDERS: ADMIT Hospitalist; ATTEND Hospitalist
DX: K51.018 Ulcerative (chronic) pancolitis with other complication (principal); A02.8 Other specified salmonella infections; C95.91 Leukemia, unspecified, in remission; I10 Essential (primary) hypertension; E11.9 Type 2 diabetes mellitus without complications; Z87.891 Personal history of nicotine dependence; M54.9 Dorsalgia, unspecified
CPT/HCPCS: 36415; 71045; 74177; 80048; 80053; 80076; 81003; 81015; 83605; 83690; 83735; 83880; 84100; 84145; 84484; 85025; 85610; 87040; 87045; 87046; 87077; 87177; 87186; 87209; 87493; 87804; 89055; 93005; 96361; 96365; 96375; 99285; J0744; J1650; J2405; J3010; J7030; Q9967